=== PATIENT | female | born 1970 | race Caucasian/White ===

== ENCOUNTER 2017-07-04 10:38 | Day surgery (SDC) | payer MEDICAID ==
[2017-07-04] MEDS ORDERED: PROPOFOL 20 ML (13:53)
[2017-07-04] MEDS ORDERED: MIDAZOLAM 1 MG/ML 2 ML INJ (13:53)
[2017-07-04] MEDS ORDERED: ONDANSETRON 4 MG INJ (13:53)
[2017-07-04] MEDS ORDERED: CEFAZOLIN 1 GM INJ (13:53)
[2017-07-04] MEDS ORDERED: METOCLOPRAMIDE 10 MG INJ (13:53)
[2017-07-04] MEDS ORDERED: FENTAnyl 50 MCG/ML VIAL (13:58)
[2017-07-04] MEDS ORDERED: KETOROLAC 30 MG INJ (14:05)
[2017-07-04] MEDS ORDERED: EPHEDrine SULFATE 50 MG/5 ML SYG (14:05)
[2017-07-04] MEDS ORDERED: OXYTOCIN 10 UNIT INJ (14:18)
[2017-07-04] MEDS ORDERED: KETOROLAC 30 MG INJ IV ×2 (14:30)
[2017-07-04] MEDS ORDERED: IBUPROFEN 600 MG TAB PO ×2 (14:30)
== END 2017-07-04 17:20 | disposition home or self-care (01) ==
LOC: SDS 10:38
DX: O02.1 Missed abortion (principal)
CPT/HCPCS: 59820; 86900; 86901; 88305